=== PATIENT | female | born 1950 | race Caucasian/White ===

== ENCOUNTER 2017-05-12 04:30 | Outpatient (CLI) | payer BC | END 2017-05-12 04:31 | disposition critical access hospital (66) | LOC: EMS 04:30 | PROVIDERS: ATTEND Surgery | DX: R07.9 Chest pain, unspecified (principal) | CPT/HCPCS: A0425; A0427 ==

== ENCOUNTER 2017-05-12 05:02 | Emergency (ER) | payer BC ==
--- NOTE | 2017-05-12 05:15 | ED Physician Documentation ---
PD HPI CHEST PAIN - Stated complaint Stated Complaint: BACK PN/ N/CP - Chief complaint Chief Complaint: Cardiac - History obtained from History obtained from: Patient - History of Present Illness Timing - onset: Enter time (3:50), Today Timing - onset during: Sleep Timing - duration: Minutes Timing - details: Abrupt onset, Now resolved Pain level now: 0 Location: Right chest Improved by: No: Rest, Oxygen, Nitro, ASA, Antacids, Other medication, Nothing Worsened by: No: Exertion, Inspiration, Eating, Movement, Palpation, Position Associated symptoms: No: Shortness of air Similar symptoms before: Has not had sx before Recently seen: Not recently seen - Additional information Additional information: has had left upper back pain since yesterday. this morning, developed right anterior chest pain which resolved within minutes Review of Systems Constitutional: reports: Reviewed and negative Cardiac: reports: Chest pain / pressure. 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 - Present Medications Home Medications: Ambulatory Orders Medication Instructions Recorded Confirmed ALPRAZolam [Xanax] 0.25 mg PO DAILY 12/08/15 05/12/17 - Allergies Allergies/Adverse Reactions: Allergies Allergy/AdvReac Type Severity Reaction Status Date / Time nickel [Nickel] Allergy Severe Rash Verified 05/12/17 05:05 - Social History Does the pt smoke?: No Smoking Status: Never smoker Does the pt drink ETOH?: Yes Does the pt have substance abuse?: No - Immunizations Immunizations are current?: Yes PD ED PE NORMAL - Vitals Vital signs reviewed: Yes - General General: Alert and oriented X 3, No acute distress, Well developed/nourished - Neck Neck: Supple, no meningeal sign - Cardiac Cardiac: RRR, No murmur, No gallop, No rub - Respiratory Respiratory: No respiratory distress, Clear bilaterally - Derm Derm: Normal color, Warm and dry - Extremities Extremities: No edema Results - Vitals Vitals: Oxygen O2 Source Room air - EKG (time done) No standard instances Rate: Rate (enter#) (66) Rhythm: NSR [place]: Normal Intervals: Normal [place] QRS: Normal Ischemia: Normal ST segments - Labs Labs: Laboratory Tests 05/12/17 05/12/17 05/12/17 05:21 05:21 05:21 WBC 5.7 RBC 4.27 Hgb 13.9 Hct 40.3 MCV 94.5 MCH 32.5 H MCHC 34.4 RDW 13.1 Plt Count 233 MPV 8.6 Neut # 2.5 Lymph # 2.4 [place] # 0.5 Eos # 0.3 Baso # 0.1 Absolute Nucleated RBC 0.00 Nucleated RBCs 0.1 Sodium 135 Potassium 4.4 Chloride 101 Carbon Dioxide 26 Anion Gap 8.0 BUN 15 Creatinine 0.7 Estimated GFR (MDRD) 84 L Glucose 102 H Calcium 9.3 Troponin I < 0.04 - Rads (name of study) chest xray Radiology: Prelim report reviewed, See rad report PD MEDICAL DECISION MAKING - ED course Complexity details: reviewed results, re-evaluated patient, considered differential, d/w patient Departure - Departure Disposition: 01 Home, Self Care Clinical Impression: Chest pain Condition: Good Instructions: ED Chest Pain Atypical Unkn Cause Follow-Up: Chad Clancy ARNP [Primary Care Provider] - Within 1 week Discharge Date/Time: 05/12/17 06:45
[2017-05-12 05:32] LABS: BASOPHILS # (AUTO) 0.1 10^3/uL (0.0-0.1); BASOPHILS % (AUTO) 1.3 %; EOSINOPHILS # (AUTO) 0.3 10^3/uL (0.0-0.7); EOSINOPHILS % (AUTO) 5.2 %; HCT - HEMATOCRIT 40.3 % (37.0-47.0); HGB - HEMOGLOBIN 13.9 g/dL (12.0-16.0); LYMPHOCYTES # (AUTO) 2.4 10^3/uL (1.5-3.5); LYMPHOCYTES % (AUTO) 41.3 %; MEAN CORPUSCULAR HEMOGLOBIN 32.5 pg (27.0-31.0); MEAN CORPUSCULAR HGB CONC 34.4 g/dL (32.0-36.0); MEAN CORPUSCULAR VOLUME 94.5 fL (81.0-99.0); MEAN PLATELET VOLUME 8.6 fL (7.9-10.8); MONOCYTES # (AUTO) 0.5 10^3/uL (0.0-1.0); MONOCYTES % (AUTO) 9.2 %; NEUTROPHILS # (AUTO) 2.5 10^3/uL (1.5-6.6); NUCLEATED RED BLOOD CELLS AUTO 0.1 /100WBC; RED BLOOD COUNT 4.27 10^6/uL (4.20-5.40); RED CELL DISTRIBUTION WIDTH 13.1 % (12.0-15.0); UNCORRECTED WHITE BLOOD COUNT 5.7 x10^3/uL; WHITE BLOOD COUNT 5.7 x10^3/uL (4.8-10.8)
[2017-05-12 05:38] LABS: CALCIUM 9.3 mg/dL (8.5-10.3); CREATININE 0.7 mg/dL (0.4-1.0); POTASSIUM 4.4 mmol/L (3.5-5.0)
--- NOTE | 2017-05-12 05:52 | XRAY Preliminary Report ---
Exam: XR Chest 2 View PA/LAT IMPRESSION: 1. No focal consolidation seen. 2. Mild bronchial wall thickening. This can be seen with bronchitis or reactive airways disease. [facility] SITE ID: [id number]
--- NOTE | 2017-05-12 05:54 | XRAY Report ---
EXAM: CHEST RADIOGRAPHY EXAM DATE: 05/12/2017 05:39 AM. CLINICAL HISTORY: Chest pain. COMPARISON: 12/08/2015. TECHNIQUE: 2 views. FINDINGS: Lungs/Pleura: Mild bronchial wall thickening. No alveolar consolidation or pleural effusion. No pneum othorax. Mediastinum: Heart and mediastinal contours are unremarkable. Other: None. IMPRESSION: 1. No focal consolidation seen. 2. Mild bronchial wall thickening. This can be seen with bronchitis or reactive airways disease. [facility] Referring Provider Line: [phone] SITE ID: [id number]
[2017-05-12 06:42] VITALS: BP 142/73
== END 2017-05-12 06:45 | disposition home or self-care (01) ==
LOC: EDUNIT# → ED 05:02 → SUPCPDRO 05:02 → ED 06:45
DX: R07.9 Chest pain, unspecified (principal); I10 Essential (primary) hypertension
CPT/HCPCS: 36415; 71020; 80048; 84484; 85025; 93005; 99284

== ENCOUNTER 2018-03-30 18:54 | Emergency (ER) | payer BC ==
--- NOTE | 2018-03-30 20:31 | ED Physician Documentation ---
PD HPI CHEST PAIN - Stated complaint Stated Complaint: HIGH BLOOD PRESSURE - Chief complaint Chief Complaint: Cardiac - History obtained from History obtained from: Patient - History of Present Illness Timing - onset: Today (She has been taking a lot of ibuprofen lately for a ankle tendinitis issue, she has had some gnawing stomach pain and some hot flashes. She started taking her blood pressure repeatedly today and it ranged from 160/90 up to 195/100. Is no primary chest pain or shortness of breath with it. No pedal edema or urinary complaint.) Review of Systems Constitutional: reports: Sweats. 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 - Present Medications Home Medications: Ambulatory Orders Medication Instructions Recorded Confirmed ALPRAZolam [Xanax] 0.25 mg PO DAILY 12/08/15 05/12/17 - Allergies Allergies/Adverse Reactions: Allergies Allergy/AdvReac Type Severity Reaction Status Date / Time nickel [Nickel] Allergy Severe Rash Verified 05/12/17 05:05 - Social History Does the pt smoke?: No Smoking Status: Never smoker Does the pt drink ETOH?: Yes Does the pt have substance abuse?: No - Immunizations Immunizations are current?: Yes - POLST Patient has POLST: No PD ED PE NORMAL - Vitals Vital signs reviewed: Yes - General General: Alert and oriented X 3, No acute distress - Neck Neck: Supple, no meningeal sign, No bony TTP - Cardiac Cardiac: RRR, No murmur - Respiratory Respiratory: No respiratory distress, Clear bilaterally - Abdomen Abdomen: Non tender - Extremities Extremities: No edema, No calf tenderness / cord - Neuro Neuro: Alert and oriented X 3, Normal speech Results - Vitals Vitals: Vital Signs - 24 hr 03/30/18 19:21 Temperature 36.3 C L Heart Rate 75 Respiratory 18 Rate Blood Pressure 168/77 H O2 Saturation 100 Oxygen O2 Source Room air - EKG (time done) 1924 Rate: Rate (enter#) (73) Rhythm: NSR [place]: Normal Intervals: Normal [place] QRS: Normal Ischemia: Normal ST segments Computer interpretation: Agree with computer - Labs Labs: Laboratory Tests 03/30/18 03/30/18 20:45 20:45 Sodium 132 L Potassium 3.8 Chloride 95 L Carbon Dioxide 29 Anion Gap 8.0 BUN 14 Creatinine 0.7 Estimated GFR (MDRD) 84 L Glucose 100 Calcium 9.7 Troponin I < 0.04 PD MEDICAL DECISION MAKING - ED course ED course: 67-year-old woman with elevated blood pressure readings at home but they are usually normal. She has some symptoms that could be atypical cardiac complaints and workup was done for this and negative. - Sepsis Event Vital Signs: Vital Signs - 24 hr 03/30/18 19:21 Temperature 36.3 C L Heart Rate 75 Respiratory 18 Rate Blood Pressure 168/77 H O2 Saturation 100 Oxygen O2 Source Room air Departure - Departure Disposition: 01 Home, Self Care Clinical Impression: Elevated blood pressure reading Condition: Good Record reviewed to determine appropriate education?: Yes Instructions: ED Chest Pain NonCardiac Comments: Call your doctor to arrange a follow-up appointment, make the next available appointment. In the interim, return anytime if worse or if new symptoms develop.
[2018-03-30 21:04] LABS: CALCIUM 9.7 mg/dL (8.5-10.3); CREATININE 0.7 mg/dL (0.4-1.0)
[2018-03-30 21:15] VITALS: BP 136/68
== END 2018-03-30 21:13 | disposition home or self-care (01) ==
LOC: ED 18:54
DX: I10 Essential (primary) hypertension (principal)
CPT/HCPCS: 36415; 80048; 84484; 99283

== ENCOUNTER 2018-09-19 12:24 | Emergency (ER) | payer BC ==
--- NOTE | 2018-09-19 15:14 | ED Physician Documentation ---
PD HPI SKIN - Stated complaint Stated Complaint: RASH ON LEG - Chief complaint Chief Complaint: Wound - History obtained from History obtained from: Patient - History of Present Illness Timing - onset: Yesterday (she noted an itchy spot on leg last evening but did not look at it in the dark and with clothes one. When showering today, noted a local red area. Feels generally well. No diffuse rash.) Timing - duration: Days (1) Timing - details: Abrupt onset, Still present Location: LLE Quality / character: Itchy, Discolored (red). No: Painful, Vesicular Associated symptoms: Facial swelling. 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 09/19/18 Cephalexin [Keflex] 500 mg PO Q6H #28 capsule 09/19/18 Dexamethasone [Decadron] 4 mg PO DAILY #5 tablet 09/19/18 Lactobacillus Acidophilus 09/19/18 [Probiotic Acidophilus] Multivitamin [Multiple Vitamins] 09/19/18 - Allergies Allergies/Adverse Reactions: Allergies Allergy/AdvReac Type Severity Reaction Status Date / Time nickel [Nickel] Allergy Severe Rash Verified 09/19/18 12:57 - Social History Does the pt smoke?: No Smoking Status: Never smoker Does the pt drink ETOH?: Yes Does the pt have substance abuse?: No - Immunizations Immunizations are current?: Yes - POLST Patient has POLST: No PD ED PE NORMAL - Vitals Vital signs reviewed: Yes - General General: Alert and oriented X 3, No acute distress, Well developed/nourished - Derm Derm: Normal color, Warm and dry - Extremities Extremities: Other (left lateral lower thigh with rounded area of redness about 4-5 cm diameter. Speckled edging and slightly raised, with uniform redness, l ooks c/w hive or local inflammation and not appearing cellulitic. No vesicles.) - Neuro Neuro: No motor deficit, No sensory deficit Results - Vitals Vitals: Oxygen O2 Source Room air PD MEDICAL DECISION MAKING - ED course Complexity details: considered differential (local and itchy with spotty and not uniform edge. No vesicles. Red uniformly. Looks more like a local hive than infection per se. But only single area. ), d/w patient Departure - Departure Disposition: 01 Home, Self Care Clinical Impression: Localized rash Condition: Stable Record reviewed to determine appropriate education?: Yes Instructions: ED Dermatitis Non Specific Rash Follow-Up: Marisol Gonzalez PA-C [Primary Care Provider] - Prescriptions: Betamethasone Valerate 1 applic TP TID #15 cream..g. Cephalexin [Keflex] 500 mg PO Q6H #28 capsule Dexamethasone [Decadron] 4 mg PO DAILY #5 tablet Comments: This does not look like a bad rash. It looks like a local irritation or local allergic reaction. I would treat it with a topical steroid such as [id number] hydrocortisone or prescription betamethasone. See how it does over the next day. If you have expansion of it and it gets red or or has any drainage or you feel generally ill such as fever, then I would start an antibiotic as a could be a form of a skin infection. It does not have that obvious appearance at this point. However if it is worsening locally I would think more infection. If you develop more general symptoms of similar itchy rash in other places, then consider a general allergic reaction and add oral steroids as well. Recheck if not improved over the next couple of days. Discharge Date/Time: 09/19/18 15:52
[2018-09-19 15:53] VITALS: BP 154/77
== END 2018-09-19 15:52 | disposition home or self-care (01) ==
LOC: ED 12:24
DX: R21 Rash and other nonspecific skin eruption (principal); I10 Essential (primary) hypertension
CPT/HCPCS: 99283

== ENCOUNTER 2019-07-11 10:52 | Outpatient (CLI) | payer BC ==
--- NOTE | 2019-07-11 13:03 | Mammography Report ---
Reason: ROUTINE MAMMO Procedure Date: 07/11/2019 Accession Number: [id number] / [id number] Procedure: [facility] - Screening Mammo w/Michel CPT Code: Final Report FULL RESULT: EXAM: Screening Mammo w/Michel DATE: 07/11/2019 11:17 AM CLINICAL HISTORY: Routine screening. No reported personal history of breast cancer. Family history breast cancer maternal aunt age 50. TECHNIQUE: (B) - Bilateral CC and MLO views were obtained. COMPARISON: 06/17/2012 through 09/27/2007. PARENCHYMAL PATTERN: (A) - The breasts demonstrate scattered fibroglandular densities bilaterally. FINDINGS: Bilateral breasts: There are no suspicious masses, calcifications, or areas of distortion. IMPRESSION: Negative examination. BI-RADS category 1. RECOMMENDATION: (ANNUAL) - Recommend routine annual screening mammography. BI-RADS CATEGORY: (1) - Negative. STANDARD QUALIFYING STATEMENTS: 1. This examination was not reviewed with the aid of Computer-Aided Detection (CAD). 2. A negative or benign imaging report should not preclude biopsy if clinically suspicious findings are present. 3. Dense breasts may obscure an underlying neoplasm. 4. This examination was reviewed with the aid of 3D breast imaging (tomosynthesis).
== END 2019-07-11 10:53 | disposition home or self-care (01) ==
LOC: DI 10:52
DX: Z12.31 Encounter for screening mammogram for malignant neoplasm of breast (principal); Z80.3 Family history of malignant neoplasm of breast
CPT/HCPCS: 77063; 77067

== ENCOUNTER 2020-02-12 14:00 | Outpatient (CLI) | payer BC | END 2020-02-12 23:59 | disposition home or self-care (01) | LOC: LAB 14:00 | PROVIDERS: ATTEND Registered Nurse | DX: R05 Cough (principal); Z20.828 Contact with and (suspected) exposure to other viral communicable diseases | CPT/HCPCS: 81599 ==

== ENCOUNTER 2020-09-02 21:49 | Outpatient (CLI) | payer BC | END 2020-09-02 21:50 | disposition home or self-care (01) | LOC: COV 21:49 | PROVIDERS: ATTEND Family Medicine | DX: R53.83 Other fatigue (principal); R07.0 Pain in throat; R43.8 Other disturbances of smell and taste; R09.81 Nasal congestion; J34.89 Other specified disorders of nose and nasal sinuses; Z20.822 Contact with and (suspected) exposure to COVID-19 ==

== ENCOUNTER 2021-05-01 16:49 | Outpatient (CLI) | payer BC, MEDICARE ==
--- NOTE | 2021-05-01 16:35 | XRAY Report ---
PROCEDURE: Abdomen Acute INDICATIONS: FLANK PAIN, RIGHT TECHNIQUE: One view chest and two views of the abdomen were acquired. COMPARISON: None. FINDINGS: Surgical changes and devices: None. Chest: Lungs are clear. Heart size is normal. No pleural effusions. No pneumoperitoneum. Abdomen: Bowel gas pattern is nonobstructive. Fecal stasis throughout the colon is seen. No suspicio us abdominal calcifications. Small calcifications are noted in bilateral lower pelvis likely represen t phleboliths. Visualized solid organ contours appear normal. Bones: No suspicious bony lesions. IMPRESSION: 1. No gross renal calcification is seen. Likely phleboliths seen in bilateral lower pelvis. 2. Constipation. No gross free air. 3. No acute cardiopulmonary pathology. Reviewed by: Ankit Sanchez MD on 05/01/2021 4:34 PM PDT Approved by: Ankit Sanchez MD on 05/01/2021 4:34 PM PDT Station ID: [id number]
[2021-05-01 20:29] LABS: ALBUMIN 4.7 g/dL (3.2-5.5); ALBUMIN/GLOBULIN RATIO 1.5 (1.0-2.2); BILIRUBIN,TOTAL 1.1 mg/dL (0.2-1.0); CALCIUM 9.6 mg/dL (8.5-10.3); CREATININE 0.8 mg/dL (0.4-1.0); POTASSIUM 3.8 mmol/L (3.5-5.0); TOTAL PROTEIN 7.9 g/dL (6.7-8.2)
== END 2021-05-01 23:59 | disposition home or self-care (01) ==
LOC: DI.S 16:49
PROVIDERS: ATTEND Physician Assistant Medical
DX: R10.9 Unspecified abdominal pain (principal); K59.00 Constipation, unspecified; E71.32 Disorders of ketone metabolism
CPT/HCPCS: 36415; 80053; 87086

== ENCOUNTER 2021-05-09 06:42 | Emergency (ER) | payer MEDICARE ==
[2021-05-09 07:10] LABS: BILIRUBIN,URINE NEGATIVE (NEGATIVE); GLUCOSE, URINE (UA) NEGATIVE (NEGATIVE); KETONES,URINE (UA) NEGATIVE (NEGATIVE); LEUKOCYTE ESTERASE, URINE NEGATIVE (NEGATIVE); NITRITE,URINE NEGATIVE (NEGATIVE); OCCULT BLOOD,URINE NEGATIVE (NEGATIVE); PROTEIN,URINE NEGATIVE (NEGATIVE); UROBILINOGEN,URINE 0.2 (NORMAL) E.U./dL (NORMAL)
[2021-05-09 07:46] LABS: BASOPHILS # (AUTO) 0.1 10^3/uL (0.0-0.1); BASOPHILS % (AUTO) 1.4 %; EOSINOPHILS # (AUTO) 0.2 10^3/uL (0.0-0.7); EOSINOPHILS % (AUTO) 4.8 %; HGB - HEMOGLOBIN 13.5 g/dL (12.0-16.0); LYMPHOCYTES # (AUTO) 1.7 10^3/uL (1.5-3.5); LYMPHOCYTES % (AUTO) 37.5 %; MEAN CORPUSCULAR HEMOGLOBIN 31.8 pg (27.0-31.0); MEAN CORPUSCULAR HGB CONC 33.8 g/dL (32.0-36.0); MEAN CORPUSCULAR VOLUME 94.1 fL (81.0-99.0); MEAN PLATELET VOLUME 10.1 fL (7.9-10.8); MONOCYTES # (AUTO) 0.6 10^3/uL (0.0-1.0); NEUTROPHILS # (AUTO) 1.9 10^3/uL (1.5-6.6); NEUTROPHILS % (AUTO) 43.1 %; PLT - PLATELET COUNT 240 10^3/uL (130-450); RED BLOOD COUNT 4.25 10^6/uL (4.20-5.40); RED CELL DISTRIBUTION WIDTH 12.1 % (12.0-15.0); WHITE BLOOD COUNT 4.4 x10^3/uL (4.8-10.8)
[2021-05-09] MEDS ORDERED: IOPAMIDOL-300 100 ML VIAL ONE (07:52)
[2021-05-09 08:00] LABS: ALBUMIN 4.6 g/dL (3.2-5.5); ALBUMIN/GLOBULIN RATIO 1.6 (1.0-2.2); BILIRUBIN,TOTAL 0.7 mg/dL (0.2-1.0); CALCIUM 9.6 mg/dL (8.5-10.3); CREATININE 0.8 mg/dL (0.4-1.0); POTASSIUM 4.2 mmol/L (3.5-5.0); TOTAL PROTEIN 7.5 g/dL (6.7-8.2)
[2021-05-09 08:08] LABS: CLARITY,URINE CLEAR (CLEAR)
[2021-05-09] MEDS ORDERED: SODIUM CHLORIDE 0.9% 1,000 ML IV STA (08:20)
--- NOTE | 2021-05-09 08:33 | ED Physician Documentation ---
PD HPI ABD PAIN - Stated complaint Stated Complaint: FEMALE - Chief complaint Chief Complaint: Abd Pain - History obtained from History obtained from: Patient - History of Present Illness Timing - onset: Last night Timing - duration: Hours Timing - details: Abrupt onset, Still present Quality: Sharp, Pain Location: LLQ Improved by: Position Worsened by: Moving Associated symptoms: Constipation. No: Fever, Nausea, Vomiting, Hematemesis, Diarrhea, Loss of appetite, Weight loss Similar symptoms before: Diagnosis (constipation) Recently seen: Clinic - Additional information Additional information: 70-year-old female previously well reports that she began having some right lower quadrant abdominal pain about 3 weeks ago she was seen in the walk-in clinic had an x-ray showing excessive stool load and she did go home and use some laxative. She has had a last bowel movement about 2 days ago last night she woke up with left lower quadrant pain that was more in her groin and seem to be improved with certain positioning. She has not had this pain previously. She has not otherwise feeling ill. She states she did go on her usual 4 mile walk yesterday and she has been working out with weights. Review of Systems Constitutional: denies: Fever Eyes: denies: Decreased vision Ears: denies: Ear pain Nose: denies: Congestion Throat: denies: Sore throat Cardiac: denies: Chest pain / pressure, Palpitations Respiratory: denies: Dyspnea, Cough GI: reports: Abdominal Pain, Constipation. 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 - Present Medications Home Medications: Ambulatory Orders Medication Instructions Recorded Confirmed ALPRAZolam [Xanax] 0.25 mg PO DAILY PRN 12/08/15 05/09/21 Lactobacillus Acidophilus 09/19/18 [Probiotic Acidophilus] Multivitamin [Multiple Vitamins] 09/19/18 - Allergies Allergies/Adverse Reactions: Allergies Allergy/AdvReac Type Severity Reaction Status Date / Time nickel [Nickel] Allergy Severe Rash Verified 09/19/18 12:57 NSAIDS (Non-Steroidal AdvReac Mild Cramps Verified 05/09/21 07:03 Anti-Inflamma - Social History Does the pt smoke?: No Smoking Status: Never smoker Does the pt drink ETOH?: Yes Does the pt have substance abuse?: No - Immunizations Immunizations are current?: Yes - POLST Patient has POLST: No PD ED PE NORMAL - Vitals Vital signs reviewed: Yes (Hypertensive) - General General: Alert and oriented X 3, No acute distress, Well developed/nourished - HEENT HEENT: Atraumatic, PERRL, EOMI - Respiratory Respiratory: No respiratory distress - Abdomen Abdomen: Normal bowel sounds, Soft, Non tender, Non distended, No organomegaly, Other (In the right groin medially over the hip flexor insertion there is some mild point tenderness. There is no mass no bulging no skin changes.) - Back Back: No CVA TTP, No spinal TTP - Derm Derm: Normal color, Warm and dry, No rash - Extremities Extremities: No deformity, No edema Results - Vitals Vitals: Vital Signs - 24 hr 05/09/21 05/09/21 06:53 07:56 Temperature 36.2 C L Heart Rate 82 69 Respiratory 16 15 Rate Blood Pressure 157/80 H 143/75 H O2 Saturation 98 98 Oxygen O2 Source Room air - Labs Labs: Laboratory Tests 05/09/21 05/09/21 05/09/21 07:07 07:42 07:42 WBC 4.4 L RBC 4.25 Hgb 13.5 Hct 40.0 MCV 94.1 MCH 31.8 H MCHC 33.8 RDW 12.1 Plt Count 240 MPV 10.1 Neut # (Auto) 1.9 Lymph # (Auto) 1.7 [place] # (Auto) 0.6 Eos # (Auto) 0.2 Baso # (Auto) 0.1 Absolute Nucleated RBC 0.00 Nucleated RBC % 0.0 Sodium 131 L Potassium 4.2 Chloride 94 L Carbon Dioxide 26 Anion Gap 11.0 BUN 16 Creatinine 0.8 Estimated GFR (MDRD) 71 L Glucose 101 H Calcium 9.6 Total Bilirubin 0.7 AST 19 ALT 15 Alkaline Phosphatase 39 L Total Protein 7.5 Albumin 4.6 Globulin 2.9 Albumin/Globulin Ratio 1.6 Lipase 33 Urine Color YELLOW Urine Clarity CLEAR Urine pH 7.0 Ur Specific [place] 1.010 Urine Protein NEGATIVE Urine Glucose (UA) NEGATIVE Urine Ketones NEGATIVE Urine Occult Blood NEGATIVE Urine Nitrite NEGATIVE Urine Bilirubin NEGATIVE Urine Urobilinogen 0.2 (NORMAL) Ur Leukocyte Esterase NEGATIVE Ur Microscopic Review NOT INDICATED Urine Culture Comments NOT INDICATED - Rads (name of study) CT ab/pel with Radiology: Prelim report reviewed (Impression: 1. No pericecal inflammation changes to suggest acute appendicitis. Colonic diverticulosis without acute diverticulitis.), EMP read indepedently (On every cut of the CT scan there is excessive stool present. There is dilation of the cecum to 7cm. ), See rad report PD MEDICAL DECISION MAKING - ED course Complexity details: reviewed results, re-evaluated patient, considered differential, d/w patient ED course: 70-year-old female has been having some pain in the right abdomen for the past several weeks appears markedly distended and constipated on her CT scan. Her cecum is dilated to 7 cm. This may explain her symptoms of right-sided pain. The pain in the left groin is most likely a strain of the hip flexor and the patient does confirm that when she is up walking she can feel this twinge of pain. The pain is localized to the medial aspect of the inguinal canal and there are no findings of mass adenopathy or hernia. She does have a history of a walk long walk yesterday. I discussed these findings with the patient the most likely diagnosis for the pain in her left side is the hip flexor strain and the should have a benign course. I did discuss with the patient treatment of constipation to include using a laxative today such as milk of magnesia or magnesium citrate followed by regular use of MiraLAX. The patient was concerned about the possibility of blood clot as she has had a friend who ended up with a blood clot in similar presenting symptoms and it and ended up having cancer. The patient is requesting specifically that we do duplex venous exam. This is provided for the patient with good relief of her anxiety related to possibility of DVT. I do believe the patient's symptoms are related to stress of the hip flexor muscle and attachments. Departure - Departure Disposition: 01 Home, Self Care Clinical Impression: Constipation Qualifiers: Constipation type: unspecified constipation type Qualified Code(s): K59.00 - Constipation, unspecified Strain of hip flexor Qualifiers: Encounter type: initial encounter Laterality: left Qualified Code(s): S76.012A - Strain of muscle, fascia and tendon of left hip, initial encounter Condition: Stable Instructions: Hip Flexor Stretch, ED Constipation Follow-Up: Jhoana Good ARNP [Primary Care Provider] - Comments: Today it appears that the pain you are having in your left groin area is likely a strain of the hip flexor muscle and attachment. There is a stretch to do for this. This is a should have a benign course. In addition it looks like you are significantly constipated with a dilation of your cecum up to 7 cm. The recommendation is to use a laxative such as milk of magnesia or magnesium citrate followed by regular use of MiraLAX. Discharge Date/Time: 05/09/21 11:35
[2021-05-09 08:43] VITALS: BP 143/75
[2021-05-09] MEDS ORDERED: IOPAMIDOL-300 100 ML VIAL IVP ONE (08:54)
--- NOTE | 2021-05-09 09:13 | CT Report ---
PROCEDURE: Abdomen/Pelvis W INDICATIONS: left groin pain RLQ pain CONTRAST: IV CONTRAST: Isovue 300 ml: 100 PO CONTRAST: *NO PO CONTRAST TECHNIQUE: After the administration of intravenous contrast, 5 mm thick sections acquired from the diaphragms to the symphysis. 5 mm thick coronal and sagittal reformats were acquired. For radiation dose reducti on, the following was used: automated exposure control, adjustment of mA and/or kV according to praveen ent size. COMPARISON: Abdominal x-ray 05/01/2021. FINDINGS: Image quality: Excellent. ABDOMEN: Lung bases: There is mild scarring in the lung bases. Heart size is normal. Solid organs: There is mild focal fatty infiltration in the anterior left hepatic lobe along the falc iform ligament. Gallbladder appears within normal limits without calcified gallstones. Biliary system is non dilated. The spleen is normal in size. Pancreas enhances normally without peripancreatic fat stranding or fluid collections. No adrenal nodules. Kidneys demonstrate no hydronephrosis. There i s a small hypodensity within the right kidney which is too small to characterize but likely represent s a cyst. Peritoneum and bowel: Bowel loops demonstrate normal wall thickness and caliber. The appendix is no t discretely well visualized but there are no pericecal inflammatory changes to suggest appendicitis. There is colonic diverticulosis without acute diverticulitis. No free fluid or air. Nodes and vessels: No retroperitoneal or mesenteric adenopathy by size criteria. Aorta and inferior vena cava are normal in size. Miscellaneous: No ventral hernias. PELVIS: Genitourinary: Bladder wall thickness is normal. Miscellaneous: No inguinal hernias or adenopathy. Bones: No suspicious bony lesions. There is mild anterolisthesis at L4-L5. A limbus vertebra is not ed in the L5 vertebral body. No vertebral body compression fractures. IMPRESSION: 1. No pericecal inflammatory changes to suggest acute appendicitis. 2. Colonic diverticulosis without acute diverticulitis. Reviewed by: Nick Willoughby MD on 05/09/2021 9:12 AM PDT Approved by: Nick Willoughby MD on 05/09/2021 9:12 AM PDT Station ID: [id number]
--- NOTE | 2021-05-09 11:44 | Ultrasound Report ---
PROCEDURE: Duplex Ext Veins Left INDICATIONS: left groin pain TECHNIQUE: Real-time imaging, as well as color and pulse Doppler interrogation, were performed of the lower extr emity deep veins from the inguinal ligament to the popliteal fossa. COMPARISON: None. FINDINGS: The deep veins are normally compressible, and free of intraluminal thrombus. Color and pu lse Doppler demonstrate normal phasic intraluminal flow. There is normal augmentation response to di stal compression maneuver. 2. Lymph nodes are seen in left inguinal region and are normal in size and appearance. IMPRESSION: No evidence of DVT in visualized left lower extremity veins. Benign-appearing small lymp h nodes seen in left inguinal region. Reviewed by: Ankit Sanchez MD on 05/09/2021 11:42 AM PDT Approved by: Ankit Sanchez MD on 05/09/2021 11:42 AM PDT Station ID: [id number]
== END 2021-05-09 11:35 | disposition home or self-care (01) ==
LOC: ED 06:42
DX: K59.00 Constipation, unspecified (principal); S76.012A Strain of muscle, fascia and tendon of left hip, initial encounter; X58.XXXA Exposure to other specified factors, initial encounter; I10 Essential (primary) hypertension
CPT/HCPCS: 36415; 74177; 80053; 81003; 83690; 85025; 93971; 99284; Q9967; 81001; 87086

== ENCOUNTER 2021-05-25 08:19 | Outpatient (CLI) | payer MEDICARE ==
--- NOTE | 2021-05-25 09:43 | Ultrasound Report ---
PROCEDURE: Abdomen Complete INDICATIONS: ABDOMINAL PAIN TECHNIQUE: Real-time scanning was performed of the abdominal and retroperitoneal organs, with image documentatio n. COMPARISON: Prior ultrasound reports only from 12/24/2009 and 03/02/2011. Correlation is also made with prior CT, 05/09/2021 FINDINGS: Liver: The liver demonstrates mildly increased size. The liver demonstrates mildly increased echogeni city, which limits ultrasound sensitivity for detection of masses. Gallbladder: No gallstones or significant sludge can be seen. The gallbladder wall does not appear th ickened. There is no specific pericholecystic fluid. The sonographic Rick's sign is negative. Biliary ducts: Intrahepatic bile ducts are non-dilated. Extrahepatic bile duct caliber measures 6 m m. Normal is 6-7 mm or less in diameter, or 10 mm or less post-cholecystectomy. Pancreas: Visualized portions of the pancreas are sonographically normal. Spleen: Spleen is normal in size and homogeneous in echotexture. Kidneys: Kidneys are normal in size and echotexture. Right kidney measures 11.3 cm long; left kidne y measures 11.1 cm long. No hydronephrosis or nephrolithiasis. No solid masses. Incidental note is made of the right kidney cortical cyst within the mid kidney measuring 1 cm Aorta: Visualized aorta is normal in caliber at less than 3 cm. Iliacs: Proximal common iliac arteries are normal in caliber at less than 2.5 cm. IVC: Intrahepatic inferior vena cava is patent. Miscellaneous: No free abdominal fluid. IMPRESSION: The gallbladder demonstrates a normal sonographic appearance. No biliary dilatation is seen. Increased liver echogenicity is seen. This is nonspecific, yet it is most commonly attributed to fatt y infiltration. 1 cm right kidney cyst incidentally noted. Reviewed by: Aime Blanton MD on 05/25/2021 8:42 AM [facility] Approved by: Aime Blanton MD on 05/25/2021 8:42 AM [facility] Station ID: [id number]
== END 2021-05-25 08:20 | disposition home or self-care (01) ==
LOC: DI 08:19
PROVIDERS: ATTEND Family Medicine
DX: R10.9 Unspecified abdominal pain (principal); N28.1 Cyst of kidney, acquired

== ENCOUNTER 2021-05-31 10:36 | Outpatient (CLI) | payer MEDICARE ==
[2021-05-31 15:19] LABS: BILIRUBIN,URINE NEGATIVE (NEGATIVE); GLUCOSE, URINE (UA) NEGATIVE (NEGATIVE); KETONES,URINE (UA) NEGATIVE (NEGATIVE); LEUKOCYTE ESTERASE, URINE NEGATIVE (NEGATIVE); NITRITE,URINE NEGATIVE (NEGATIVE); OCCULT BLOOD,URINE NEGATIVE (NEGATIVE); PROTEIN,URINE NEGATIVE (NEGATIVE); UROBILINOGEN,URINE 0.2 (NORMAL) E.U./dL (NORMAL)
[2021-05-31 15:27] LABS: BACTERIA,URINE Rare /HPF (None Seen); CLARITY,URINE CLEAR (CLEAR); RBC,URINE 0-5 /HPF (0-5); SQUAMOUS EPITHELIAL CELL,UR RARE Squamous (<= Few); WBC,URINE 0-3 /HPF (0-5)
[2021-05-31 15:30] LABS: ALBUMIN 4.8 g/dL (3.2-5.5); ALBUMIN/GLOBULIN RATIO 1.5 (1.0-2.2); BILIRUBIN,TOTAL 1.1 mg/dL (0.2-1.0); CALCIUM 9.8 mg/dL (8.5-10.3); CREATININE 0.6 mg/dL (0.4-1.0); POTASSIUM 3.8 mmol/L (3.5-5.0); TOTAL PROTEIN 8.1 g/dL (6.7-8.2)
== END 2021-05-31 23:59 | disposition home or self-care (01) ==
LOC: LAB.S 10:36
PROVIDERS: ATTEND Physician Assistant Medical
DX: R10.9 Unspecified abdominal pain (principal)
CPT/HCPCS: 36415; 80053; 81001; 87086

== ENCOUNTER 2021-09-10 12:58 | Outpatient (CLI) | payer MEDICARE ==
--- NOTE | 2021-09-11 07:25 | Mammography Report ---
BILATERAL DIGITAL SCREENING MAMMOGRAM 3D/2D WITH EXAGGERATED CC: 09/10/2021 CLINICAL: Routine screening. Family history of breast cancer. Comparison is made to exams dated: 07/11/2019 mammogram and 06/17/2012 mammogram - [facility]. There are scattered fibroglandular elements in both breasts. No significant masses, calcifications, or other findings are seen in either breast. There has been no significant interval change. IMPRESSION: NEGATIVE There is no mammographic evidence of malignancy. A 1 year screening mammogram is recommended. This exam was interpreted at Station ID: [id number]. NOTE: For mammograms, a report in lay terms will be sent to the patient. Approximately 15% of breast malignancies will not be visualized mammographically. In the management of a palpable breast mass, a negative mammogram must not discourage biopsy of a clinically suspicious lesion. Electronically Signed By: Tomy Doyle M.D. ar/penrad:09/10/2021 14:30:07 ACR BI-RADS Category 1: Negative 3341F PARENCHYMAL PATTERN: (A) - The breast(s) demonstrate(s) scattered fibroglandular densities. BI-RADS CATEGORY: (1) - 1 RECOMMENDATION: (ANNUAL) - Recommend routine annual screening mammography. [id number] 1 year screening LATERALITY: (B)
== END 2021-09-10 12:59 | disposition home or self-care (01) ==
LOC: DI.S 12:58
PROVIDERS: ATTEND Registered Nurse
DX: Z12.31 Encounter for screening mammogram for malignant neoplasm of breast (principal); Z80.3 Family history of malignant neoplasm of breast

== ENCOUNTER 2022-09-08 11:13 | Emergency (ER) | payer MEDICARE ==
[2022-09-08 11:50] LABS: BASOPHILS # (AUTO) 0.1 10^3/uL (0.0-0.1); BASOPHILS % (AUTO) 1.3 %; EOSINOPHILS # (AUTO) 0.2 10^3/uL (0.0-0.7); EOSINOPHILS % (AUTO) 3.4 %; HGB - HEMOGLOBIN 14.2 g/dL (12.0-16.0); LYMPHOCYTES # (AUTO) 1.8 10^3/uL (1.5-3.5); MEAN CORPUSCULAR HEMOGLOBIN 31.6 pg (27.0-31.0); MEAN CORPUSCULAR VOLUME 95.6 fL (81.0-99.0); MEAN PLATELET VOLUME 10.6 fL (7.9-10.8); MONOCYTES # (AUTO) 0.4 10^3/uL (0.0-1.0); MONOCYTES % (AUTO) 7.8 %; NEUTROPHILS # (AUTO) 2.4 10^3/uL (1.5-6.6); NEUTROPHILS % (AUTO) 49.3 %; PLT - PLATELET COUNT 269 10^3/uL (130-450); RED CELL DISTRIBUTION WIDTH 12.3 % (12.0-15.0); WHITE BLOOD COUNT 4.8 x10^3/uL (4.8-10.8)
--- NOTE | 2022-09-08 11:58 | ED Physician Documentation ---
PD HPI CHEST PAIN - Stated complaint Stated Complaint: CHEST PX - Chief complaint Chief Complaint: Cardiac - History obtained from History obtained from: Patient - History of Present Illness Timing - onset: Last night (about 11 pm, while lying in bed. Onset of dull, burning feeling lower substernal. With some nausea. It persisted some on and off. Improved with sitting up. Noted it still some discomofort this morning. Went to Walk In and referred to ER for more definitive testing.) Timing - onset during: Rest. No: Exertion Timing - duration: Minutes, Hours Timing - details: Abrupt onset, Still present, Waxing and waning Quality: Aching, Indigestion, Pain Location: Substernal, Epigastric Radiation: No: Jaw, Neck, Back Improved by: Nothing (has not tried anything else since onset.). No: Rest Worsened by: No: Inspiration, Movement, Palpation Associated symptoms: Nausea. No: Shortness of air, Vomiting, Feeling faint / dizzy, Palpitations Similar symptoms before: Has not had sx before Review of Systems Constitutional: denies: Fever, Chills Nose: denies: Rhinorrhea / runny nose, Congestion Throat: denies: Sore throat Cardiac: reports: Chest pain / pressure. denies: Palpitations, Pedal edema, Calf pain Respiratory: denies: Dyspnea, Cough GI: reports: Nausea. 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: No Smoking Status: Never smoker Does the pt drink ETOH?: Yes Does the pt have substance abuse?: No - Immunizations Immunizations are current?: Yes - POLST Patient has POLST: No PD ED PE NORMAL - Vitals Vital signs reviewed: Yes - General General: Alert and oriented X 3, No acute distress, Well developed/nourished - Cardiac Cardiac: RRR, No murmur - Respiratory Respiratory: No respiratory distress, Clear bilaterally - Abdomen Abdomen: Soft, Other (mild tenderness in epigostric aea without guarding. ) - Derm Derm: Normal color, Warm and dry, No rash - Extremities Extremities: Normal ROM s pain, No edema, No calf tenderness / cord - Neuro Neuro: Alert and oriented X 3, No motor deficit, Normal speech Results - Vitals Vitals: Vital Signs - 24 hr 09/08/22 09/08/22 11:18 13:00 Temperature 36.2 C L Heart Rate 72 64 Respiratory 16 14 Rate Blood Pressure 160/80 H 144/82 H O2 Saturation 99 99 Oxygen O2 Source Room air - EKG (time done) 11:30 Rate: Rate (enter#) (66) Rhythm: NSR [place]: Normal Intervals: Normal [place] QRS: Normal Ischemia: Normal ST segments. No: ST elevation c/w ischemia, ST depression - Labs Labs: Laboratory Tests 09/08/22 09/08/22 09/08/22 11:39 11:39 11:39 WBC 4.8 RBC 4.50 Hgb 14.2 Hct 43.0 MCV 95.6 MCH 31.6 H MCHC 33.0 RDW 12.3 Plt Count 269 MPV 10.6 Neut # (Auto) 2.4 Lymph # (Auto) 1.8 [place] # (Auto) 0.4 Eos # (Auto) 0.2 Baso # (Auto) 0.1 Absolute Nucleated RBC 0.00 Nucleated RBC % 0.0 Sodium 137 Potassium 3.7 Chloride 98 L Carbon Dioxide 28 Anion Gap 11.0 BUN 15 Creatinine 0.7 Estimated GFR (MDRD) 82 L Glucose 101 H Calcium 9.5 Total Bilirubin 1.0 AST 22 ALT 19 Alkaline Phosphatase 48 Troponin I High Sens 2.3 B-Natriuretic Peptide Total Protein 7.9 Albumin 4.8 Globulin 3.1 Albumin/Globulin Ratio 1.5 Lipase 35 09/08/22 11:49 WBC RBC Hgb Hct MCV MCH MCHC RDW Plt Count MPV Neut # (Auto) Lymph # (Auto) [place] # (Auto) Eos # (Auto) Baso # (Auto) Absolute Nucleated RBC Nucleated RBC % Sodium Potassium Chloride Carbon Dioxide Anion Gap BUN Creatinine Estimated GFR (MDRD) Glucose Calcium Total Bilirubin AST ALT Alkaline Phosphatase Troponin I High Sens B-Natriuretic Peptide 26 Total Protein Albumin Globulin Albumin/Globulin Ratio Lipase - Rads (name of study) chest xray Radiology: Prelim report reviewed (no acute radiologic abnormality. ), See rad report PD Medical Decision Making - ED course Complexity details: reviewed old records (looked for prior ECGs for comparison in her hospital and outpt records and none found in our system. ), reviewed results, considered differential (symptoms at rest when lying down. ECG, trop are normal here so excluding acute heart injury. CXR is clear as well so no effusion, pneumonia, PTX. ), d/w patient ED course: she did feel moderate improvement with gi cocktail though she says it was starting to improve even prior to it. Departure - Departure Disposition: 01 Home, Self Care Clinical Impression: Esophagitis Chest pain Qualifiers: Chest pain type: precordial pain Qualified Code(s): R07.2 - Precordial pain Condition: Stable Record reviewed to determine appropriate education?: Yes Follow-Up: Jhoana Good ARNP [Primary Care Provider] - Prescriptions: Famotidine [Pepcid] 20 mg PO DAILY #30 tablet Comments: Your EKG, chest x-ray, blood tests are normal so no signs of heart failure, heart attack, pneumonia, collapsed lung or abnormal heart rhythm. Your symptoms sound likely to be some irritation of the esophagus and stomach likely from some reflux. I would suggest some famotidine acid reducing medicine once or twice daily for the next 1 to 2 weeks. Also you can add some antacid such as Maalox or Mylanta 3-4 times daily over the next several days. Recheck if not improved over the next several days. Return if worsening or new symptoms develop such as fever cough edema or exertional pain etc. Discharge Date/Time: 09/08/22 13:08
--- NOTE | 2022-09-08 12:01 | XRAY Report ---
PROCEDURE: Chest 1 View X-Ray INDICATIONS: Chest Pain TECHNIQUE: One view of the chest was acquired. COMPARISON: Same-day radiograph FINDINGS: Surgical changes and devices: None. Lungs and pleura: No pleural effusions or pneumothorax. Lungs are clear. Mediastinum: Mediastinal contours appear normal. Heart size is normal. Bones and chest wall: No suspicious bony lesions. Overlying soft tissues appear unremarkable. IMPRESSION: No acute radiographic abnormality. Reviewed by: Manny Villa MD on 09/08/2022 12:00 PM [facility] Approved by: Manny Villa MD on 09/08/2022 12:00 PM [facility] Station ID: [id number]
[2022-09-08 12:08] LABS: ALBUMIN 4.8 g/dL (3.2-5.5); ALBUMIN/GLOBULIN RATIO 1.5 (1.0-2.2); CALCIUM 9.5 mg/dL (8.5-10.3); CREATININE 0.7 mg/dL (0.4-1.0); POTASSIUM 3.7 mmol/L (3.5-5.0); TOTAL PROTEIN 7.9 g/dL (6.7-8.2)
[2022-09-08] MEDS ORDERED: LIDOCAINE VISCOUS 2% 15 ML ORAL SYRINGE MM STA (12:25)
[2022-09-08] MEDS ORDERED: MAG HYDROX/AL HYDROX/SIMETH 30 ML UDC PO STA (12:25)
[2022-09-08] MEDS ORDERED: FAMOTIDINE 20 MG TABLET PO STA (12:54)
[2022-09-08 13:01] VITALS: BP 144/82
== END 2022-09-08 13:08 | disposition home or self-care (01) ==
LOC: ED 11:13
DX: K20.90 Esophagitis, unspecified without bleeding (principal); R07.89 Other chest pain; I10 Essential (primary) hypertension
CPT/HCPCS: 36415; 71045; 71046; 80053; 83690; 83880; 84484; 85025; 93005; 99284; A9270

== ENCOUNTER 2022-09-08 12:08 | Outpatient (CLI) | payer MEDICARE ==
--- NOTE | 2022-09-08 14:32 | XRAY Report ---
PROCEDURE: Chest 2 View X-Ray INDICATIONS: ATYPICAL CHEST PAIN TECHNIQUE: 2 views of the chest were acquired. COMPARISON: Chest radiographs 05/12/2017 FINDINGS: Surgical changes and devices: None. Lungs and pleura: No pleural effusions or pneumothorax. Lungs are clear. Mediastinum: Mediastinal contours are normal. Heart size is normal. Bones and chest wall: No suspicious bony abnormalities. Soft tissues appear unremarkable. IMPRESSION: No acute cardiopulmonary abnormality. Reviewed by: Tomy Cobb MD on 09/08/2022 2:31 PM PST Approved by: Tomy Cobb MD on 09/08/2022 2:31 PM PST Station ID: [id number]
== END 2022-09-08 12:09 | disposition home or self-care (01) ==
LOC: DI.S 12:08
PROVIDERS: ATTEND Registered Nurse
DX: R07.89 Other chest pain (principal)

== ENCOUNTER 2023-01-21 10:59 | Outpatient (CLI) | payer MEDICARE ==
[2023-01-21 14:34] LABS: BASOPHILS # (AUTO) 0.1 10^3/uL (0.0-0.1); BASOPHILS % (AUTO) 1.9 %; EOSINOPHILS # (AUTO) 0.2 10^3/uL (0.0-0.7); HCT - HEMATOCRIT 41.6 % (37.0-47.0); LYMPHOCYTES # (AUTO) 1.7 10^3/uL (1.5-3.5); LYMPHOCYTES % (AUTO) 40.6 %; MEAN CORPUSCULAR HEMOGLOBIN 32.1 pg (27.0-31.0); MEAN CORPUSCULAR HGB CONC 33.7 g/dL (32.0-36.0); MEAN CORPUSCULAR VOLUME 95.4 fL (81.0-99.0); MEAN PLATELET VOLUME 11.4 fL (7.9-10.8); MONOCYTES # (AUTO) 0.5 10^3/uL (0.0-1.0); MONOCYTES % (AUTO) 11.7 %; NEUTROPHILS # (AUTO) 1.7 10^3/uL (1.5-6.6); NEUTROPHILS % (AUTO) 40.6 %; PLT - PLATELET COUNT 250 10^3/uL (130-450); RED BLOOD COUNT 4.36 10^6/uL (4.20-5.40); RED CELL DISTRIBUTION WIDTH 12.4 % (12.0-15.0); WHITE BLOOD COUNT 4.2 x10^3/uL (4.8-10.8)
[2023-01-21 15:27] LABS: ALBUMIN 4.6 g/dL (3.2-5.5); ALBUMIN/GLOBULIN RATIO 1.4 (1.0-2.2); ALKALINE PHOSPHATASE 37 IU/L (42-121); ALT ALANINE AMINOTRANSFERASE 18 IU/L (10-60); AST ASPARTATE AMINOTRANSFERASE 21 IU/L (10-42); BILIRUBIN,TOTAL 0.8 mg/dL (0.2-1.0); BUN - BLOOD UREA NITROGEN 12 mg/dL (6-20); CALCIUM 9.8 mg/dL (8.5-10.3); CARBON DIOXIDE - CO2 29 mmol/L (21-32); CHLORIDE 96 mmol/L (101-111); CREATININE 0.7 mg/dL (0.4-1.0); GFR - MDRD 82 (>89); GLUCOSE 106 mg/dL (70-100); LIPASE 31 U/L (22-51); POTASSIUM 4.7 mmol/L (3.5-5.0); SODIUM 136 mmol/L (135-145); TOTAL PROTEIN 7.8 g/dL (6.7-8.2)
[2023-01-21 15:30] LABS: CRP - C-REACTIVE PROTEIN < 1.0 mg/dL (0-1.0)
== END 2023-01-21 11:00 | disposition home or self-care (01) ==
LOC: LAB.S 10:59
PROVIDERS: ATTEND Registered Nurse
DX: R10.9 Unspecified abdominal pain (principal)
CPT/HCPCS: 36415; 80053; 83690; 85025; 86140

== ENCOUNTER 2023-01-22 12:15 | Outpatient (CLI) | payer MEDICARE ==
[2023-01-22] MEDS ORDERED: DIATR MEGLU/DIATRIZOATE SODIUM 120 ML BOTTLE ONE (12:23)
[2023-01-22] MEDS ORDERED: iohexoL-300 100 ML VIAL ONE (12:23)
[2023-01-22] MEDS ORDERED: iohexoL-300 100 ML VIAL IVP ONE (14:51)
[2023-01-22] MEDS ORDERED: DIATRIZOATE MEGLU/DIATRIZO SOD 30 ML BOTTLE PO ONE (14:51)
--- NOTE | 2023-01-22 16:29 | CT Report ---
PROCEDURE: ABDOMEN/PELVIS W INDICATIONS: ABN PAIN CONTRAST: 100ml omni 300 TECHNIQUE: After the administration of oral and intravenous contrast, 5 mm thick sections acquired from the diap hragms to the symphysis. 5 mm thick coronal and sagittal reformats were acquired. For radiation dos e reduction, the following was used: automated exposure control, adjustment of mA and/or kV accordin g to patient size. COMPARISON: CT abdomen/pelvis 05/09/2021 FINDINGS: Image quality: Excellent. Lung bases and heart: Unremarkable. Liver: No solid mass. Gallbladder and biliary tree: No radiopaque stones or wall thickening. No biliary dilation. Spleen: No splenomegaly. Pancreas: No pancreatic ductal dilation. Adrenals: No adrenal nodule. Kidneys and ureters: No hydronephrosis. No renal cystic lesion which requires follow up. No solid mas s. Simple appearing cyst is seen in the interpolar region of the right kidney. Bowel and peritoneum: No bowel distension. No pathologic free fluid. Diverticulosis without evidence of diverticulitis. The appendix is not well visualized and may be absent. No inflammatory changes are seen in the right lower quadrant. Moderate stool in the colon. Lymph nodes: No central or retroperitoneal adenopathy. Vessels: No infrarenal aortic aneurysm. PELVIS Reproductive organs: Unremarkable. Bladder: No abnormal wall thickening, accounting for underdistension. Pelvic lymph nodes: No pelvic adenopathy by size criteria. Bones: No aggressive osseous abnormality. Unchanged mild anterolisthesis of L5 on S1. L5 limbus verte bra again noted. Other: Small fat-containing periumbilical hernia. No inguinal hernia. IMPRESSION: 1.No acute abnormality identified in the abdomen or pelvis. 2.Colonic diverticulosis without signs of acute diverticulitis. Reviewed by: Tomy Doyle MD on 01/22/2023 4:27 PM PDT Approved by: Tomy Dolye MD on 01/22/2023 4:27 PM PDT Station ID: [id number]
== END 2023-01-22 12:16 | disposition home or self-care (01) ==
LOC: DI 12:15
PROVIDERS: ATTEND Registered Nurse
DX: R10.9 Unspecified abdominal pain (principal); K57.30 Diverticulosis of large intestine without perforation or abscess without bleeding
CPT/HCPCS: 74177; Q9963; Q9967

== ENCOUNTER 2023-05-07 10:34 | Outpatient (CLI) | payer MEDICARE ==
--- NOTE | 2023-05-07 22:53 | XRAY Report ---
PROCEDURE: Lumbar Spine Complete INDICATIONS: CONTUSION OF LOWER BACK AND PELVIS TECHNIQUE: 4 views of the lumbar spine were acquired. COMPARISON: None. FINDINGS: Bones: 5 [id number] vertebrae are present. Grade 1 L4 on 5 anterolisthesis and grade 1 L5 on S1 retrolisthesis. There is moderate facet arthropathy at L5-S1. Moderate posterior disc loss at L4-5 a nd L5-S1.. No vertebral body compression fractures. No suspicious bony lesions. Soft tissues: Overlying bowel gas pattern is normal. No suspicious soft tissue calcifications. IMPRESSION: 1. Lower lumbar spondylosis and spondylolisthesis. Reviewed by: Silvia Briones MD on 05/07/2023 10:52 PM PDT Approved by: Silvia Briones MD on 05/07/2023 10:52 PM PDT Station ID: [id number]
--- NOTE | 2023-05-07 22:55 | XRAY Report ---
PROCEDURE: Pelvis 3 View INDICATIONS: CONTUSION OF LOWER BACK AND PELVIS TECHNIQUE: 3 view(s) of the pelvis acquired. COMPARISON: None. FINDINGS: Bones: No fractures or dislocations. No suspicious bony lesions. Mild bilateral hip joint degener ation. Soft tissues: Visualized bowel gas pattern is normal. No suspicious soft tissue calcifications. IMPRESSION: No acute bony abnormality. Reviewed by: Silvia Briones MD on 05/07/2023 10:53 PM PDT Approved by: Silvia Briones MD on 05/07/2023 10:53 PM PDT Station ID: [id number]
== END 2023-05-07 10:35 | disposition home or self-care (01) ==
LOC: DI.S 10:34
PROVIDERS: ATTEND Internal Medicine
DX: S30.0XXA Contusion of lower back and pelvis, initial encounter (principal); S93.402A Sprain of unspecified ligament of left ankle, initial encounter; M47.816 Spondylosis without myelopathy or radiculopathy, lumbar region; M43.16 Spondylolisthesis, lumbar region

== ENCOUNTER 2023-06-02 07:53 | Outpatient (CLI) | payer MEDICARE ==
[2023-06-02 14:37] LABS: BASOPHILS # (AUTO) 0.1 10^3/uL (0.0-0.1); BASOPHILS % (AUTO) 1.7 %; EOSINOPHILS # (AUTO) 0.3 10^3/uL (0.0-0.7); EOSINOPHILS % (AUTO) 5.9 %; HCT - HEMATOCRIT 40.4 % (37.0-47.0); HGB - HEMOGLOBIN 13.2 g/dL (12.0-16.0); LYMPHOCYTES # (AUTO) 2.4 10^3/uL (1.5-3.5); LYMPHOCYTES % (AUTO) 45.7 %; MEAN CORPUSCULAR HEMOGLOBIN 31.4 pg (27.0-31.0); MEAN CORPUSCULAR HGB CONC 32.7 g/dL (32.0-36.0); MEAN CORPUSCULAR VOLUME 96.2 fL (81.0-99.0); MEAN PLATELET VOLUME 11.9 fL (7.9-10.8); MONOCYTES # (AUTO) 0.6 10^3/uL (0.0-1.0); MONOCYTES % (AUTO) 10.6 %; NEUTROPHILS # (AUTO) 1.9 10^3/uL (1.5-6.6); NEUTROPHILS % (AUTO) 35.9 %; PLT - PLATELET COUNT 271 10^3/uL (130-450); RED CELL DISTRIBUTION WIDTH 12.6 % (12.0-15.0); WHITE BLOOD COUNT 5.3 x10^3/uL (4.8-10.8)
[2023-06-02 14:58] LABS: ALBUMIN 4.7 g/dL (3.2-5.5); ALBUMIN/GLOBULIN RATIO 1.8 (1.0-2.2); ALKALINE PHOSPHATASE 45 IU/L (42-121); ALT ALANINE AMINOTRANSFERASE 11 IU/L (10-60); AST ASPARTATE AMINOTRANSFERASE 17 IU/L (10-42); BILIRUBIN,TOTAL 0.6 mg/dL (0.2-1.0); BUN - BLOOD UREA NITROGEN 12 mg/dL (6-20); CALCIUM 9.9 mg/dL (8.5-10.3); CARBON DIOXIDE - CO2 31 mmol/L (21-32); CHLORIDE 100 mmol/L (101-111); CHOLESTEROL 231 mg/dL; CREATININE 0.7 mg/dL (0.6-1.3); GFR - MDRD 82 (>89); GLUCOSE 103 mg/dL (74-104); HDL CHOLESTEROL 77 mg/dL; LDL CHOLESTEROL,CALCULATED 138 mg/dL; LDL/HDL RATIO 1.8 (<4.4); POTASSIUM 4.3 mmol/L (3.5-4.5); SODIUM 135 mmol/L (135-145); TOTAL PROTEIN 7.3 g/dL (6.4-8.9); TRIGLYCERIDES 81 mg/dL (48-352); VLDL CHOLESTEROL 16 mg/dL
[2023-06-02 15:08] LABS: THYROID STIMULATING HORMONE 2.61 uIU/mL (0.34-5.60)
[2023-06-02 15:19] LABS: ESTIMATED AVERAGE GLUCOSE 108 mg/dL (70-100); HEMOGLOBIN A1c% 5.4 % (4.27-6.07)
== END 2023-06-02 07:54 | disposition home or self-care (01) ==
LOC: LAB.S 07:53
PROVIDERS: ATTEND Internal Medicine
DX: R03.0 Elevated blood-pressure reading, without diagnosis of hypertension (principal); Z13.220 Encounter for screening for lipoid disorders; Z13.1 Encounter for screening for diabetes mellitus; Z13.228 Encounter for screening for other metabolic disorders
CPT/HCPCS: 36415; 80053; 80061; 83036; 83721; 84443; 85025

== ENCOUNTER 2023-06-09 09:48 | Outpatient (CLI) | payer MEDICARE ==
--- NOTE | 2023-06-10 10:09 | Mammography Report ---
BILATERAL DIGITAL DIAGNOSTIC MAMMOGRAM 3D/2D: 06/09/2023 CLINICAL: Diffuse left breast pain. Comparison is made to exams dated: 09/10/2021 mammogram, 07/11/2019 mammogram, and 06/17/2012 mammogr am - [facility]. There are scattered areas of fibroglandular density in both breasts (category b / 25%-50% glandular t issue). No significant masses, calcifications, or other findings are seen in either breast. IMPRESSION: NEGATIVE There is no mammographic evidence of malignancy. Exam findings were conveyed to the patient. Diffuse left breast pain. Patient is advised to monitor f or significant change. Clinical follow-up as needed. A 1 year screening mammogram is recommended. Based on the Tyrer Cuzick model (a risk assessment model) the patients lifetime risk is 5.4% and her 10 year risk is 3.7%. According to the ACR, ACS, and NCCN guidelines, an annual breast MRI exam richard g with mammogram is recommended if the patients lifetime risk is 20% or greater. This exam was interpreted at Station ID: [id number]. NOTE: For mammograms, a report in lay terms will be sent to the patient. Approximately 15% of breast malignancies will not be visualized mammographically. In the management of a palpable breast mass, a negative mammogram must not discourage biopsy of a clinically suspicious lesion. Electronically Signed By: Curt Quintero M.D. slc/:06/09/2023 11:00:32 ACR BI-RADS Category 1: Negative 3341F PARENCHYMAL PATTERN: (A) - The breast(s) demonstrate(s) scattered fibroglandular densities. BI-RADS CATEGORY: (1) - 1 Mammogram [id number] 1 year screening LATERALITY: (B)
== END 2023-06-09 09:49 | disposition home or self-care (01) ==
LOC: DI 09:48
PROVIDERS: ATTEND Internal Medicine
DX: N64.4 Mastodynia (principal); R92.323 Mammographic fibroglandular density, bilateral breasts

== ENCOUNTER 2023-07-30 01:15 | Emergency (ER) | payer MEDICARE ==
[2023-07-30] MEDS ORDERED: ALPRAZolam 0.25 MG TABLET PO STA (01:29)
[2023-07-30] MEDS ORDERED: LOSARTAN 50 MG TABLET PO STA (01:46)
--- NOTE | 2023-07-30 01:48 | ED Physician Documentation ---
History of Present Illness - Stated complaint Stated Complaint: HIGH BP - Chief complaint Chief Complaint: Cardiac - History obtained from History obtained from: Patient - Additonal information Additional information: 72yF with history of anxiety p/w high blood pressure reading at dentist office 178/117 with elevated heart rate just prior to having a crown placed. She felt anxious about this high blood pressure reading throughout the day after going home, and had persistent high heart rate. denies cp, soa, dizziness, nausea, confusion fnd. she does state she has had high blood pressure readings for a while but has not yet started medication. her SBP usually averages in the 150s per her report. 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 - Present Medications Home Medications: Ambulatory Orders Medication Instructions Recorded Confirmed ALPRAZolam [Xanax] 0.25 mg PO DAILY PRN 12/08/15 03/05/23 Losartan Potassium 25 mg PO QDAC #30 tablet 07/30/23 - Allergies Allergies/Adverse Reactions: Allergies Allergy/AdvReac Type Severity Reaction Status Date / Time nickel [Nickel] Allergy Severe Rash Verified 07/30/23 01:25 NSAIDS (Non-Steroidal AdvReac Mild Cramps Verified 07/30/23 01:25 Anti-Inflamma - Social History Does the pt smoke?: No Smoking Status: Never smoker Does the pt drink ETOH?: No Does the pt have substance abuse?: No - Immunizations Immunizations are current?: Yes - POLST Patient has POLST: No PD ED PE NORMAL - Vitals Vital signs reviewed: Yes - General General: Alert and oriented X 3, No acute distress, Well developed/nourished - HEENT HEENT: Atraumatic, PERRL, EOMI - Neck Neck: Supple, no meningeal sign - Cardiac Cardiac: RRR - Respiratory Respiratory: No respiratory distress, Clear bilaterally - Derm Derm: Normal color, Warm and dry - Extremities Extremities: No deformity - Neuro Neuro: Alert and oriented X 3, ham pumper 2-12 intact, No motor deficit, No sensory deficit, Normal speech, Other (cerebellar testing, gait and strength within normal limits) Results - Vitals Vitals: Vital Signs - 24 hr 07/30/23 01:22 Temperature 36.0 C L Heart Rate 98 Respiratory 18 Rate Blood Pressure 174/50 H O2 Saturation 98 Oxygen O2 Source Room air PD Medical Decision Making - ED course ED course: 72-year-old woman presented to the emergency department with elevated blood pressure reading at an outpatient dental procedure earlier today with persistent anxiety about this while at home and high heart rate readings at home.She also states that she has had multiple high blood pressure readings in the past with a verage systolic blood pressure in the 150s. Patient is well-appearing on my exam with heart rate within normal limits and some elevated blood pressure. She is not displaying any symptoms of end organ damage or hypertensive emergency. We discussed that she likely will benefit from starting a low-dose antihypertensive and following up with her primary care provider. Patient also requested her home Xanax which she did not take this evening. Return precautions given. Departure - Departure Disposition: Home, Self Care Clinical Impression: Hypertension, Anxiety Condition: Stable Instructions: Hypertension Control, Losartan tablets Prescriptions: Losartan Potassium 25 mg PO QDAC #30 tablet Comments: You were seen in the emergency department for high blood pressure and feelings of anxiety. Electronic prescription was sent to [facility] in [place] for losartan, blood pressure medication. Please follow-up with your primary care provider and return to the emergency department if you have any new or worsening symptoms or other concerns.
[2023-07-30 01:57] VITALS: BP 165/78; O2SAT 100
== END 2023-07-30 01:52 | disposition home or self-care (01) ==
LOC: ED 01:15
DX: I10 Essential (primary) hypertension (principal); F41.9 Anxiety disorder, unspecified
CPT/HCPCS: 99282; 99284; A9270

== ENCOUNTER 2023-08-17 07:00 | Outpatient (CLI) | payer MEDICARE ==
--- NOTE | 2023-08-17 12:59 | XRAY Report ---
PROCEDURE: Chest 2 View X-Ray INDICATIONS: UPPER RESPIRATORY INFECTION TECHNIQUE: 2 views of the chest were acquired. COMPARISON: Chest x-ray, 09/08/2022. FINDINGS: Surgical changes and devices: None. Lungs and pleura: No pleural effusions or pneumothorax. Lungs are clear. Mediastinum: Mediastinal contours appear normal. Heart size is normal. Bones and chest wall: No suspicious bony lesions. Overlying soft tissues appear unremarkable. IMPRESSION: No acute cardiopulmonary process. Reviewed by: Erik Mendez MD on 08/17/2023 12:57 PM PST Approved by: Erik Mendez MD on 08/17/2023 12:57 PM PST Station ID: [id number]
== END 2023-08-17 23:59 | disposition home or self-care (01) ==
LOC: DI.S 07:00
PROVIDERS: ATTEND Physician Assistant
DX: J06.9 Acute upper respiratory infection, unspecified (principal)

== ENCOUNTER 2023-09-03 12:35 | Outpatient (CLI) | payer MEDICARE ==
--- NOTE | 2023-09-06 12:55 | Ultrasound Report ---
LIMITED ULTRASOUND OF LEFT BREAST: 09/03/2023 CLINICAL: Diffuse left breast pain. Comparison is made to exams dated: 06/09/2023 mammogram, 09/10/2021 mammogram, 07/11/2019 mammogram, and 06/17/2012 mammogram - [facility]. Ultrasound of the left breast lower outer quadrant was performed. Forbes scale images of the real-addie e examination were reviewed. No significant abnormalities were seen sonographically in the left breast. IMPRESSION: NEGATIVE There is no sonographic evidence of malignancy. There is no abnormality seen in the left breast to correspond with the area of clinical concern in th e lower outer quadrant, however, clinical correlation and clinical followup are recommended. Negative imaging does not preclude further evaluation for suspicious findings that could be sampled c linically. If further imaging is needed, consider MRI. Patient had a diagnostic mammogram evaluation in May 2023 with no significant findings for similar sy mptoms. Return to annual mammogram screening schedule is recommended. Future imaging is recommended as follo ws: 06/09/2024 screening mammogram. This exam was interpreted at Station ID: [id number]. Electronically Signed By: Manny rebollar/:09/06/2023 12:51:45 Entry: - 09/06/2023 12:51:46 Ultrasound BI-RADS: 1 Negative BI-RADS CATEGORY: (1) - 1 RECOMMENDATION: (ADDMAM) - Recommend additional mammographic views. [id number] return to screening LATERALITY: (B)
== END 2023-09-03 12:36 | disposition home or self-care (01) ==
LOC: DI 12:35
PROVIDERS: ATTEND Internal Medicine
DX: N64.4 Mastodynia (principal)

== ENCOUNTER 2023-10-18 12:21 | Outpatient (CLI) | payer MEDICARE ==
[2023-10-18 15:35] LABS: BASOPHILS # (AUTO) 0.1 10^3/uL (0.0-0.1); BASOPHILS % (AUTO) 1.5 %; EOSINOPHILS # (AUTO) 0.2 10^3/uL (0.0-0.7); EOSINOPHILS % (AUTO) 3.1 %; HCT - HEMATOCRIT 37.4 % (37.0-47.0); HGB - HEMOGLOBIN 12.5 g/dL (12.0-16.0); LYMPHOCYTES # (AUTO) 1.6 10^3/uL (1.5-3.5); LYMPHOCYTES % (AUTO) 30.2 %; MEAN CORPUSCULAR HGB CONC 33.4 g/dL (32.0-36.0); MEAN CORPUSCULAR VOLUME 95.7 fL (81.0-99.0); MEAN PLATELET VOLUME 10.9 fL (7.9-10.8); MONOCYTES # (AUTO) 0.5 10^3/uL (0.0-1.0); PLT - PLATELET COUNT 259 10^3/uL (130-450); RED BLOOD COUNT 3.91 10^6/uL (4.20-5.40); RED CELL DISTRIBUTION WIDTH 12.9 % (12.0-15.0); WHITE BLOOD COUNT 5.4 x10^3/uL (4.8-10.8)
[2023-10-18 15:50] LABS: ALBUMIN 4.5 g/dL (3.2-5.5); ALBUMIN/GLOBULIN RATIO 1.8 (1.0-2.2); BILIRUBIN,TOTAL 0.5 mg/dL (0.2-1.0); CREATININE 0.7 mg/dL (0.6-1.3); POTASSIUM 4.3 mmol/L (3.5-4.5)
[2023-10-18 15:59] LABS: THYROID STIMULATING HORMONE 1.77 uIU/mL (0.34-5.60)
== END 2023-10-18 12:22 | disposition home or self-care (01) ==
LOC: LAB.S 12:21
PROVIDERS: ATTEND Emergency Medicine
DX: R00.2 Palpitations (principal)
CPT/HCPCS: 36415; 80053; 83735; 84443; 85025

== ENCOUNTER 2024-02-08 12:46 | Outpatient (CLI) | payer MEDICARE | END 2024-02-08 12:47 | disposition home or self-care (01) | LOC: DI 12:46 | PROVIDERS: ATTEND Internal Medicine | DX: R00.2 Palpitations (principal); I10 Essential (primary) hypertension | CPT/HCPCS: 93307 ==

== ENCOUNTER 2024-05-15 09:21 | Outpatient (CLI) | payer MEDICARE ==
--- NOTE | 2024-05-15 11:19 | Mammography Report ---
BILATERAL DIGITAL DIAGNOSTIC MAMMOGRAM 3D/2D WITH SPOT COMPRESSION: 05/15/2024 CLINICAL: Left anterior breast pain and skin discoloration. Due for bilateral exam. Comparison is made to exams dated: 06/09/2023 mammogram, 09/10/2021 mammogram, and 07/11/2019 mammogr am - [facility]. There are scattered areas of fibroglandular density (category b / 25%-50% glandular tissue). A BB marker was placed in the area of clinical concern in the left, and no mammographic abnormality i s identified. No significant masses, calcifications, or other findings are seen in either breast. IMPRESSION: INCOMPLETE: NEED ADDITIONAL IMAGING EVALUATION No mammographic abnormality in the area of clinical concern in the left breast. Recommend further katerin luation with targeted breast ultrasound, which will immediately follow this exam. Based on the Tyrer Cuzick model (a risk assessment model) the patient's lifetime risk is 5.1% and her 10 year risk is 3.8%. According to the ACR, ACS, and NCCN guidelines, an annual breast MRI exam richard g with mammogram is recommended if the patient's lifetime risk is 20% or greater. This exam was interpreted at Station ID: [id number]. NOTE: For mammograms, a report in lay terms will be sent to the patient. Approximately 15% of breast malignancies will not be visualized mammographically. In the management of a palpable breast mass, a negative mammogram must not discourage biopsy of a clinically suspicious lesion. Electronically Signed By: Brooke Willis M.D., Ph.D. eb/:05/15/2024 10:13:14 ACR BI-RADS Category 0: Incomplete: Need Additional Imaging Evaluation 3340F PARENCHYMAL PATTERN: (A) - The breast(s) demonstrate(s) scattered fibroglandular densities. BI-RADS CATEGORY: (0) - 0 Ultrasound [id number] Immediate follow-up LATERALITY: (B)
--- NOTE | 2024-05-15 11:19 | Ultrasound Report ---
LIMITED ULTRASOUND OF LEFT BREAST: 05/15/2024 CLINICAL: Intermittent pain in left breast at previous Mastitis site. Comparison is made to exams dated: 09/03/2023 ultrasound, 06/09/2023 mammogram, and 09/10/2021 mammogra [facility]. Color flow ultrasound of the left breast 3 o'clock region was performed. Forbes scale images of the r eal-time examination were reviewed. No sonographic abnormality is seen in the area of clinical concern in the left breast at 3 o'clock, 5 cm from the nipple. IMPRESSION: NEGATIVE No sonographic abnormality in the area of clinical concern. No mammographic or sonographic evidence o f malignancy. Recommend routine annual mammogram screening in 1 year. Clinical follow-up is also recommended, and further management of palpable abnormalities or other foc al signs or symptoms should be based on the results of clinical evaluation. If palpable abnormality o r other concerning symptom persists or progresses, further clinical evaluation should be considered. Findings and recommendations were conveyed to the patient during today's evaluation. This exam was interpreted at Station ID: [id number]. Electronically Signed By: Brooke Willis M.D., Ph.D. eb/:05/15/2024 10:24:02 ACR BI-RADS Category 1: Negative 3341F BI-RADS CATEGORY: (1) - 1 RECOMMENDATION: (ANNUAL) - Recommend routine annual screening mammography. [id number] 1 year screening LATERALITY: (B)
== END 2024-05-15 09:22 | disposition home or self-care (01) ==
LOC: DI 09:21
PROVIDERS: ATTEND Internal Medicine
DX: N63.23 Unspecified lump in the left breast, lower outer quadrant (principal); N64.4 Mastodynia; N61.0 Mastitis without abscess; L08.9 Local infection of the skin and subcutaneous tissue, unspecified